=== PATIENT | female | born 1945 | race African-American/Black ===

== ENCOUNTER 2016-10-24 09:07 | Day surgery (SDC) | payer MEDICARE, OTHER ==
--- NOTE | ~2016-10-24 | EGD ---
EGD REPORT [facility] [address] [place]. [id number] NAME: SAMANTHA MARK : [birth year] [place] [facility] [place] [id number] AGE: 70 ADM/REG DATE : 10/24/16 MR#: [id number] REPORT SERV DATE: 10/24/16 DICTATED BY: MARY JANE BAILEY DATE: 10/24/16 REPORT STATUS : Draft TRANS[facility]ED [facility]: [facility] DATE: 10/24/16 [facility] Patient Name: Samantha Mark Date of : 1945 Attending MD: MARY JANE BAILEY, Procedure Date No Time: 10/24/2016 Procedure: Upper Device-Assisted Enteroscopy without Fluoroscopy Indications: Iron deficiency anemia secondary to chronic blood loss Referring MD: CAMILLA PALMA III, MD Medicines: Monitored Anesthesia Care Complications: No immediate complications. Estimated blood loss: None. Procedure: After obtaining informed consent, the endoscope was passed under direct vision using the balloon-assisted technique. Throughout the procedure, the patient's blood pressure, pulse, and oxygen saturations were monitored continuously. The SIF [id number] [id number] was introduced through the mouth and advanced to the proximal jejunum. After obtaining informed consent, the endoscope was passed under direct vision using the balloon-assisted technique. Throughout the procedure, the patient's blood pressure, pulse, and oxygen saturations were monitored continuously. Findings: The examined esophagus was normal. 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 Coagulation for bleeding prevention using argon plasma at 1 liter/minute and 30 lopes was successful. The exam of the stomach was otherwise normal. The cardia and gastric fundus were normal on retroflexion. Localized moderate mucosal abnormality characterized by nodularity was found in the second part of the duodenum. Biopsies were taken with a cold forceps for histology. Verification of patient identification for the specimen was done. Estimated blood loss was minimal. The exam of the duodenum was otherwise normal. There was no evidence of significant pathology in the entire examined portion of jejunum. Impression: - Normal esophagus. 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 - Mucosal abnormality in the duodenum. Biopsied. - The examined portion of the jejunum was normal. Recommendation: - Continue present medications. EGD REPORT [address] [place]. [address] NAME: SAMANTHA MARK : [birth year] [place] [facility] [place] [id number] AGE: 70 ADM/REG DATE : 10/24/16 MR#: [id number] REPORT SERV DATE: 10/24/16 DICTATED BY: MARY JANE BAILEY DATE: 10/24/16 REPORT STATUS : Draft TRANSCRIBED BY: [employer] SERVICES DATE: 10/24/16 - Await pathology results. - Return to previous diet. - Return to referring physician. - Consider RFA of GAVE if continues to bleed. Procedure Code(s): --- Professional --- 72142, Small intestinal endoscopy, enteroscopy beyond second portion of duodenum, not including ileum; with biopsy, single or multiple Diagnosis Code(s): --- Professional --- K31.819, Angiodysplasia of stomach and duodenum without bleeding K31.9, Disease of stomach and duodenum, unspecified D50.0, Iron deficiency anemia secondary to blood loss (chronic) CPT copyright 2013 [employer]. All rights reserved. The codes documented in this report are preliminary and upon gym supervisor review may be revised to meet current compliance requirements. MARY JANE BAILEY, 10/24/2016 10:59 AM Number of Addenda: 0 Note Initiated On: 10/24/2016 10:23 AM Scope Withdrawal Time 0 hours 0 minutes 0 seconds [id number] [place] [id number]
[~2016-10-24 09:07] MED LIST: *UNABLE1; ALBUTEROL; ALBUTEROL5 INH; AMLODIPINE PO; APRES25 PO; ASAB PO; BEN25 PO; BIST; CALMOSEPTINE O2.5 OZ TOP; CALTRA600D; CELEXA20 PO; CITALOPRAM PO; COMBIVENT RESPIM4 GM INH; COREG25 PO; CYANO1000T PO; DIOVAN320 MG PO; DSS PO; DUONEB INH; ENULOSE PO; FERRETTS325 MG PO; FERROUS SULF325 M1 PO; FESO4 PO; FUROSEMIDE PO; IRON325 MG PO; IVVIBRA PO; KDUR10 PO; KDUR20 PO; KLOR-CON M2020 MEQ PO; L40 PO; LOP25 PO; LORCET PO; LORTAB10 PO; MACROBID PO; MAXIMUM D3 PO; MUCINEX600 MG PO; NEBULIZER SOLN RX INH; NEXIUM20 M1 PO; NEXIUM40 PO; NITROQUICK0.4 MG SL; NITROSTAT0.4 MG SL; NORCO 10/325 PO; NORCO PO; NORCO1 TAB PO; NORV10 PO; NOVOLOG SC; NTG150 SL; NYSTOP100000 MG TOP; OXYCON10 PO; P10 PO; PEP20 PO; POTASSIUM CHLORIDE PO; PR25 PO; PRILO PO; PROTONIX PO; PROVENTSOL INH; SPIRIVA INH; SPIRO25 PO; SPIRO50 PO; SUCR PO; SYMBICORT 160/41 INH INH; TRAVATAN Z0.004 % OPH; UNKNOWN EYE DROP OPH; VENTOLIN HFA INH; VITAMIN D1000 UNI1 PO; VITAMIN D31000 UNIT PO; [UNRECOGNIZED DRUG - OTHER] PO
[2017-02-01] MEDS ORDERED: NORCO1 TAB PO (19:58)
[2017-02-01] MEDS ORDERED: PROTONIX PO (19:59)
[2017-02-01] MEDS ORDERED: KLOR-CON M2020 MEQ PO (19:59)
[2017-02-01] MEDS ORDERED: CONSTULOSE PO (19:59)
[2017-02-01] MEDS ORDERED: L40 PO (19:59)
[2017-02-01] MEDS ORDERED: NORV10 PO (20:00)
[2017-02-01] MEDS ORDERED: CELEXA20 PO (20:00)
[2017-02-01] MEDS ORDERED: BARRIER CREAM TOP (20:00)
[2017-02-01] MEDS ORDERED: IRON 28 MG PO (20:00)
[2017-02-01] MEDS ORDERED: NITROSTAT0.4 MG SL (20:00)
[2017-02-01] MEDS ORDERED: COMBIVENT RESPIM4 GM INH (20:01)
[2017-02-01] MEDS ORDERED: SPIRO50 PO (20:01)
[2017-02-01] MEDS ORDERED: SUCR PO (20:01)
[2017-02-01] MEDS ORDERED: SIMBRINZA 1%-0.28 ML OPH (20:02)
[2017-02-01] MEDS ORDERED: TRAVATAN Z OPH (20:03)
[2017-02-09] MEDS ORDERED: CONSTULOSE PO (12:01)
[2017-02-09] MEDS ORDERED: NORCO1 TAB PO (12:02)
[2017-02-09] MEDS ORDERED: LOP25 PO (12:03)
[2017-02-09] MEDS ORDERED: PROTONIX PO (12:04)
[2017-02-09] MEDS ORDERED: SUCR PO (12:04)
[2017-02-09] MEDS ORDERED: XIFAXAN550 MG PO (12:05)
[2017-02-16] MEDS ORDERED: FERROUS SULF325 M1 PO (10:51)
[2017-02-19] MEDS ORDERED: NORCO1 TA1 PO (11:14)
[2017-02-19] MEDS ORDERED: ANUSOL-HC25 MG (11:15)
[2017-02-19] MEDS ORDERED: ANUSOL-HC25 MG PR (11:17)
[2017-04-15] MEDS ORDERED: L40 PO (07:38)
[2017-04-15] MEDS ORDERED: NORV5 PO (07:38)
[2017-04-15] MEDS ORDERED: CELEXA40 MG PO (07:38)
[2017-04-15] MEDS ORDERED: CONSTULOSE PO (07:38)
[2017-04-15] MEDS ORDERED: LOP25 PO (07:39)
[2017-04-15] MEDS ORDERED: NORCO1 TAB PO (07:39)
[2017-04-15] MEDS ORDERED: SIMBRINZA 1%-0.28 ML OPH (07:39)
[2017-04-15] MEDS ORDERED: SPIRO50 PO (07:39)
[2017-04-15] MEDS ORDERED: COMBIVENT RESPIM4 GM INH (07:40)
[2017-04-15] MEDS ORDERED: TRAVATAN Z 0.004% OPH (07:40)
[2017-04-15] MEDS ORDERED: SUCR PO (07:40)
[2017-04-15] MEDS ORDERED: NITROSTAT0.4 MG SL (07:41)
[2017-04-15] MEDS ORDERED: KDUR20 PO (07:42)
[2017-04-15] MEDS ORDERED: PROTONIX PO (07:43)
[2017-04-18] MEDS ORDERED: NORV10 PO (12:07)
[2017-04-18] MEDS ORDERED: XIFAXAN550 MG PO (12:07)
[2017-04-18] MEDS ORDERED: LACTULOSE PO (12:09)
== END 2016-10-24 23:59 | disposition home or self-care (01) ==
LOC: DMU 09:07
PROVIDERS: Internal Medicine Gastroenterology
PROC: 0DB98ZX Excision of Duodenum, Via Natural or Artificial Opening Endoscopic, Diagnostic (ICD-10-PCS; principal; 2016-10-24 10:00)
DX: K29.80 Duodenitis without bleeding (principal); J44.9 Chronic obstructive pulmonary disease, unspecified; K31.819 Angiodysplasia of stomach and duodenum without bleeding; D50.0 Iron deficiency anemia secondary to blood loss (chronic); K31.9 Disease of stomach and duodenum, unspecified; K21.9 Gastro-esophageal reflux disease without esophagitis; I82.409 Acute embolism and thrombosis of unspecified deep veins of unspecified lower extremity; I48.91 Unspecified atrial fibrillation; K74.60 Unspecified cirrhosis of liver; F32.9 Major depressive disorder, single episode, unspecified; F41.9 Anxiety disorder, unspecified; M06.9 Rheumatoid arthritis, unspecified; Z90.710 Acquired absence of both cervix and uterus; K92.2 Gastrointestinal hemorrhage, unspecified; I50.9 Heart failure, unspecified; Z87.01 Personal history of pneumonia (recurrent); E11.22 Type 2 diabetes mellitus with diabetic chronic kidney disease; I13.0 Hypertensive heart and chronic kidney disease with heart failure and stage 1 through stage 4 chronic kidney disease, or unspecified chronic kidney disease; N18.9 Chronic kidney disease, unspecified
CPT/HCPCS: 82962; 88305